=== PATIENT | female | born 1955 | race Caucasian/White ===

== ENCOUNTER 2020-11-01 13:30 | Outpatient (CLI) | payer MEDICARE, OTHER, SELFPAY | END 2020-11-01 13:31 | disposition home or self-care (01) | LOC: SPT 13:31 | PROVIDERS: Family Provider Family Medicine; Visit Provider Podiatrist Foot & Ankle Surgery | DX: Z46.89 Encounter for fitting and adjustment of other specified devices (principal); M76.821 Posterior tibial tendinitis, right leg | CPT/HCPCS: 97760; L3030 ==

== ENCOUNTER 2024-09-03 13:00 | Outpatient (CLI) | payer MEDICARE, OTHER, SELFPAY ==
--- NOTE | 2024-09-03 13:00 | MM_ITS ---
WS: [id number] SCREENING DIGITAL BREAST TOMOSYNTHESIS MAMMOGRAM WITH CAD HISTORY: SCREEN COMPARISON: 06/19/2019, 05/31/2015. Bilateral CC and MLO with tomosynthesis and synthetic mammography submitted. Computer aided detection analyzed. Breast composition: There are scattered areas of fibroglandular density. Irregular mass with spiculat ed margins and increased density noted at a middle depth at 12:00 in the LEFT breast. This is a new m ass that was not present on the prior exams. No calcifications. No additional mass or suspicious calc ification within either breast. MM/MM scr tomosynthesis [id number] IMPRESSION: BI-RADS: 0 - Incomplete: Need additional imaging evaluation. FOLLOW UP: Need Additional Imaging Recommendation: LEFT breast ultrasound, 12:00.
== END 2024-09-03 13:01 | disposition home or self-care (01) ==
PROVIDERS: PCP Family Medicine; Visit Provider Family Medicine
DX: Z12.31 Encounter for screening mammogram for malignant neoplasm of breast (principal); R92.323 Mammographic fibroglandular density, bilateral breasts; N63.22 Unspecified lump in the left breast, upper inner quadrant
CPT/HCPCS: 77063; 77067

== ENCOUNTER 2024-10-06 11:33 | Outpatient (CLI) | payer MEDICARE, OTHER, SELFPAY ==
--- NOTE | 2024-10-06 11:36 | US_ITS ---
WS: [email or web address] ULTRASOUND LEFT BREAST HISTORY: ABNORMAL MAMMOGRAM COMPARISON: 09/03/2024, 06/19/2019 TECHNIQUE: 2-D and Doppler. Hypoechoic nonparallel, spiculated mass is noted in the LEFT breast at 12:00, 2 cm from the nipple. T his corresponds to the mammographic abnormality. Mild peripheral increased vascularity. No additional abnormalities are identified. US/US breast LT limited* [id number] IMPRESSION: BI-RADS: 4- Suspicious Finding - Biopsy Should be Considered FOLLOW-UP: Biopsy Recommended Ultrasound-guided biopsy recommended of the mass at 12:00 within the LEFT breas t. Notified Rupesh Kearney MD at 10/06/2024 1:21 PM. Report discussed with Albert medrano and Dr. Kearney's office.
--- NOTE | 2024-10-06 12:34 | XR_ITS ---
WS: [email or web address] DEXA (DUAL ENERGY X-RAY ABSORPTIOMETRY) Bone mineral density was performed using a [employer] machine. HISTORY: POSTMENOPAUSAL COMPARISON: 06/19/2019 Lumbar spine BMD (L1-L4): 0.979 g/cm2 T score: -1.7 Z score: -1.2 Total hip BMD: Left: 0.818 g/cm2. T score: -1.5 Z score: -0.9 Right: 0.870 g/cm2. T score: -1.1 Z score: -0.5 10 year probability of a major osteoporotic fracture is 10.4%. Compared to the prior study from 06/19/2019. Lumbar spine bone mineral density has increased by 7.2%. Bilateral hips bone mineral density has decreased by 4.8%. XR/XR DEXA axial skeleton* [id number] IMPRESSION: OSTEOPENIA based upon the WHO classification for females. Significant increase in bone mineral density within the lumbar spine since the prior examination. Significant decrease in bone mineral density in the hips since the prior study.
== END 2024-10-06 11:34 | disposition home or self-care (01) ==
LOC: RAD 11:36
PROVIDERS: PCP Family Medicine; Visit Provider Family Medicine
DX: Z13.820 Encounter for screening for osteoporosis (principal); Z78.0 Asymptomatic menopausal state; M85.80 Other specified disorders of bone density and structure, unspecified site; N63.22 Unspecified lump in the left breast, upper inner quadrant
CPT/HCPCS: 76642; 77080

== ENCOUNTER 2024-10-21 12:32 | Outpatient (CLI) | payer MEDICARE, OTHER, SELFPAY ==
--- NOTE | 2024-10-21 12:43 | US_ITS ---
WS: [email or web address] ULTRASOUND-GUIDED LEFT BREAST BIOPSY HISTORY: L BREAST MASS COMPARISON: 10/06/2024, 09/03/2024 Procedure, risks and complications are explained to the patient. Medications are reviewed. Consent is obtained. The mass in the LEFT breast is localized with ultrasound. Mass localizes to 12:00, 2 cm from the nipp le. Skin is cleansed with ChloraPrep and anesthetized with 1% buffered lidocaine. Small dermatome is made. Under sterile conditions mass is biopsied with a 14-gauge Achieve needle. Multiple core biopsie s are performed. Material placed in formalin and sent to pathology for review. No complications encou ntered. Breast tissue marker (Bard ultrasound enhanced ribbon): Single. Patient left the radiology suite with no complications. [place] is [place] [facility] [place] [facility] with any concerns. US/[place] [id number] IMPRESSION: 1. Uncomplicated core needle biopsy LEFT breast mass at 12:00. PATHOLOGY: Invasive mammary carcinoma, mixed ductal and lobular features. Breas t prognostic profile is pending and will be reported separately. RECOMMENDATION: Follow-up with oncology and breast surgeon. Mammographic, ultra sound and pathology findings are concordant.
[2024-10-26 07:45] LABS: Breast Profile ER,PR,HER2,Ki-6 See Report
== END 2024-10-21 12:33 | disposition home or self-care (01) ==
LOC: RAD 12:34
PROVIDERS: PCP Family Medicine; Visit Provider Physician Assistant
DX: C50.412 Malignant neoplasm of upper-outer quadrant of left female breast (principal)
CPT/HCPCS: 19083; 88305; 88361; 88374